=== PATIENT | female | born 1970 | race Caucasian/White ===

== ENCOUNTER 2018-04-11 15:59 | Emergency (ER) | payer OTHER ==
[~2018-04-11] VITALS: Ht 172.7 cm; Wt 85.0 kg
[~2018-04-11 15:59] MED LIST: DEPO150I IM; LEVO125T4 PO; PERC5TAB12 PO; POTA10TA8 PO; VENTAER INH
[2018-04-11 16:10] VITALS: BP 162/102; PULSE 120; RESP 16; TEMP 99; O2SAT 96
[2018-04-11 18:17] VITALS: BP 132/84; PULSE 89; RESP 15; TEMP 98; O2SAT 99
[2018-04-11] MEDS ORDERED: SODIUM CHLOR 0.9% 1000 ML INJ 1,000 ML IV SCH (18:31)
--- NOTE | 2018-04-11 18:38 | PD ---
HPI Chief Complaint: GI Complaint Time Seen by Provider: 18:07 Travel History International Travel<30 days: No Contact w/Intl Traveler<30days: No Traveled to known affect area: No History of Present Illness HPI 48-year-old female with a history of Crohn's disease and asthma presents emergency department for evaluation of abdominal pain that started yesterday. Says she went to her primary care physician office today where he ordered an x- ray. There is a concern for small bowel obstruction on x-ray so she was advised to come to the emergency department for further evaluation. Patient says that the pain is located in the middle of her abdomen described as pressure and tightening. Says the pain is worse with laying down and standing up. Says she has been able to eat normally however. She has associated nausea without vomiting. Says she has had 3 bowel movements a day but are dark in color and abnormal for her. She denies diarrhea. Says she has a history of hemorrhoids and has occasional bleeding but denies bleeding today. Says she has chronic abdominal pain however, this is different than her usual abdominal pain. She has a history of an ex lap for an ovarian cyst, appendectomy, and fatty tissue removal as part of her surgical history. She denies chest pain or shortness of breath. Her last colonoscopy was in October and she has followed [facility] for her condition. [facility] Past Medical History Arthritis: No Asthma: Yes Blood Disorders: No Cancer: No Cardiovascular Problems: No Chemotherapy: No COPD: No Cerebrovascular Accident: No Diabetes: No Diminished Hearing: No Endocrine: Yes Gastrointestinal Disorders: Yes GERD: No Glaucoma: No Genitourinary: No Headaches: No Hepatitis: No Hiatal Hernia: No Immune Disorder: No Musculoskeletal: Yes Neurologic: Yes (ARM AN LEG TINGLING STARTED ABOUT 1 MONTH AGO) Psychiatric: No Reproductive: No Respiratory: Yes Immunizations Current: Yes Migraines: No Radiation Therapy: No Seizures: No Sleep Apnea: No Thyroid Disease: Yes (hypo) Ulcer: No Tetanus Vaccination: > 5 Years Influenza Vaccination: Yes ?: Not : 5 Para: 2 Miscarriage: 1 : 2 Past Surgical History Abdominal Surgery: Yes (APPENDECTOMY) AICD: No Appendectomy: Yes Arteriovenous Shunt: No Cardiac Surgery: No Cholecystectomy: No Ear Surgery: No Endocrine Surgery: No Eye Surgery: No Genitourinary Surgery: No Gynecologic Surgery: No Insulin Pump: No Joint Replacement: No Neurologic Surgery: No Oral Surgery: No Pacemaker: No Thoracic Surgery: No Tonsillectomy: Yes Other Surgery: Yes (cyst removed from ovary) Social History Alcohol Use: No Tobacco Use: No Substance Use: No Allergies-Medications (Allergen,Severity, Reaction): Coded Allergies: Sulfa (Sulfonamide Antibiotics) (Verified Allergy, Severe, hives, 04/11/18) latex (Verified Allergy, Severe, Rash, 04/11/18) pneumococcal vaccine (Verified Allergy, Severe, Rash, 04/11/18) severe rash @ injection site acetaminophen (Verified Allergy, Intermediate, Rash, 04/11/18) rash on legs hydrocodone (Verified Allergy, Intermediate, Rash, 04/11/18) rash on legs prochlorperazine (Verified Adverse Reaction, Severe, Nausea/Vomiting, 04/11) Reported Meds & Prescriptions Reported Meds & Active Scripts Active Dicyclomine (Dicyclomine HCl) 20 Mg Tab 20 Mg PO TID 7 Days Reglan (Metoclopramide HCl) 5 Mg Tab 5 Mg PO QID 7 Days Reported Levothyroxine (Levothyroxine Sodium) 125 Mcg Tab 150 Mcg PO DAILY Depo-Provera Inj (Medroxyprogesterone Inj) 150 Mg/Ml Inj 150 Mg IM Q90D Ventolin Hfa 18 GM Inh (Albuterol Sulfate) 90 Mcg/Act Aer 1 Puff INH Q4H PRN Review of Systems Except as stated in HPI: all other systems reviewed are Neg Physical Exam Narrative GENERAL: Well-developed, well-nourished no apparent distress SKIN: Focused skin assessment warm/dry. HEAD: Atraumatic. Normocephalic. EYES: Pupils equal and round. No scleral icterus. No injection or drainage. ENT: No nasal bleeding or discharge. Mucous membranes pink and moist. NECK: Trachea midline. No JVD. No lymphadenopathy CARDIOVASCULAR: Regular rate and rhythm. No murmur appreciated. RESPIRATORY: No accessory muscle use. Clear to auscultation. Breath sounds equal bilaterally. GASTROINTESTINAL: Abdomen soft, voluntary guarding, tenderness to palpation of the right upper quadrant and right abdominal region without rebound tenderness. No organomegaly. Normoactive bowel sounds. MUSCULOSKELETAL: No obvious deformities. No clubbing. No cyanosis. No edema. Homans sign negative bilaterally NEUROLOGICAL: Awake and alert. No obvious cranial nerve deficits. Motor grossly within normal limits. Normal speech. PSYCHIATRIC: Appropriate mood and affect; insight and judgment normal. Data Data Last Documented VS Vital Signs Date Time Temp Pulse Resp B/P (MAP) Pulse Ox O2 Delivery O2 Flow Rate FiO2 04/12/18 00:16 04/11/18 19:14 18 99 Room Air 04/11/18 19:13 85 04/11/18 18:17 98.0 Orders Orders Complete Blood Count With Diff (04/11/18 18:31) Comprehensive Metabolic Panel (04/11/18 18:31) Lipase (04/11/18 18:31) Prothrombin Time / Inr (Pt) (04/11/18:) Act Partial Throm Time (Ptt) (04/11/18:) Urinalysis - C+S If Indicated (04/11/18 18:31) Iv Access Insert/Monitor (04/11/18 18:31) Ecg Monitoring (04/11/18 18:) Oximetry (04/11/18 18:31) NPO (04/11/18 18:31) Sodium Chlor 0.9% 1000 Ml Inj (Ns 1000 M (04/11/18 18:31) Ketorolac Inj (Toradol Inj) (04/11/18 18:45) Ed Urine Pregnancytest Poc (04/11/18 18:31) Ng Gastric Tube Insert/Monitor (04/11/18 18:37) Hydromorphone Pf Inj (Dilaudid Pf Inj) (04/11/18 18:45) Ondansetron Odt (Zofran Odt) (04/11/18 19:15) Ct Abd/Pel W Iv Contrast(Rout) (04/11/18 19:26) Oral Contrast - Adult (04/11/18 19:33) Diatrizoate Liq ( Gastroview Liq) (04/11/18 20:01) Iohexol 350 Inj (Omnipaque 350 Inj) (04/11/18 21:44) Hydromorphone Pf Inj (Dilaudid Pf Inj) (04/11/18 22:00) Discontinue Ng Tube (04/11/18 22:47) Dicyclomine (Bentyl) (04/11/18 23:00) Metoclopramide Inj (Reglan Inj) (04/11/18 23:00) Labs Laboratory Tests Test 04/11/18 18:35 04/11/18 21:27 White Blood Count 11.6 TH/MM3 Red Blood Count 4.61 MIL/MM3 Hemoglobin 13.3 GM/DL Hematocrit 39.9 % Mean Corpuscular Volume 86.5 FL Mean Corpuscular Hemoglobin 28.8 PG Mean Corpuscular Hemoglobin Concent 33.3 % Red Cell Distribution Width 15.9 % Platelet Count 269 TH/MM3 Mean Platelet Volume 9.0 FL Neutrophils (%) (Auto) 54.0 % Lymphocytes (%) (Auto) 35.7 % Monocytes (%) (Auto) 7.7 % Eosinophils (%) (Auto) 1.9 % Basophils (%) (Auto) 0.7 % Neutrophils # (Auto) 6.2 TH/MM3 Lymphocytes # (Auto) 4.1 TH/MM3 Monocytes # (Auto) 0.9 TH/MM3 Eosinophils # (Auto) 0.2 TH/MM3 Basophils # (Auto) 0.1 TH/MM3 CBC Comment DIFF FINAL Differential Comment Prothrombin Time 10.0 SEC Prothromb Time International Ratio 1.0 RATIO Activated Partial Thromboplast Time 27.6 SEC Blood Urea Nitrogen 7 MG/DL Creatinine 0.94 MG/DL Random Glucose 81 MG/DL Total Protein 7.3 GM/DL Albumin 4.1 GM/DL Calcium Level 8.5 MG/DL Alkaline Phosphatase 86 U/L Aspartate Amino Transf (AST/SGOT) 16 U/L Alanine Aminotransferase (ALT/SGPT) 24 U/L Total Bilirubin 0.4 MG/DL Sodium Level 142 MEQ/L Potassium Level 3.4 MEQ/L Chloride Level 109 MEQ/L Carbon Dioxide Level 22.2 MEQ/L Anion Gap 11 MEQ/L Estimat Glomerular Filtration Rate 63 ML/MIN Lipase 142 U/L Urine Color LIGHT-YELLOW Urine Turbidity CLEAR Urine pH 6.5 Urine Specific [place] 1.008 Urine Protein NEG mg/dL Urine Glucose (UA) NEG mg/dL Urine Ketones NEG mg/dL Urine Occult Blood NEG Urine Nitrite NEG Urine Bilirubin NEG Urine Urobilinogen LESS THAN 2.0 MG/DL Urine Leukocyte Esterase NEG Urine RBC 2 /hpf Urine WBC LESS THAN 1 /hpf Urine Squamous Epithelial Cells <1 /hpf Urine Bacteria RARE /hpf Microscopic Urinalysis Comment CULT NOT INDICATED MDM Medical Decision Making Medical Screen Exam Complete: Yes Emergency Medical Condition: Yes Differential Diagnosis Small bowel obstruction, Crohn's disease, gastritis Narrative Course 48y female presents to the ED c/o abdominal pain that has been present since yesterday. She went to her PCP today where they obtained an xray which was suggestive of a SBO. She decided to come to the ED for further evaluation. Her vital signs are stable. Patient has allergies to hydrocodone but has had Dilaudid. Dilaudid and Toradol administered for pain. Zofran for nausea. NG tube placed as patient is nauseous. Labs and imaging studies ordered. Review of the EMR and records patient brought in today: Patient was able to bring in couple of the imaging studies from the past year. She had a CT abdomen pelvis with and without contrast in October for diffuse abdominal pain and was unremarkable. Colonoscopy report from October 26, 2017 showed "circumferential diffuse abdominal mucosa was found in the left colon; the mucosa was erythematous and congested; multiple biopsies were performed." Hemorrhoids were noted on this report as well. EGD demonstrated gastritis. Last Impressions Abdomen/Pelvis CT 04/11/181925 Signed Impressions: CONCLUSION: Essentially unremarkable study. Her labs are reassuring. I discussed the findings of the CT and labs with the family. Advised that there is no small bowel obstruction and I do not see a reason to admit this patient today. Dicyclomine and Reglan administered prior to departure. She is strongly advised to follow-up with the primary care physician and terrazzo laborer for further evaluation. Advance diet as tolerated. Dicyclomine and Reglan for outpatient use. Diagnosis Primary Impression: Abdominal pain Qualified Codes: R10.84 - Generalized abdominal pain Admitting Information Admitting Physician Requests: Observation Referrals: Awning Erector Additional Instructions: You may eat as tolerated. Use medications as prescribed for your abdominal pain and nausea. Follow up with a terrazzo laborer. Return for worsening or persistent symptoms. Scripts Dicyclomine (Dicyclomine) 20 Mg Tab 20 MG PO TID for Bowel Management for 7 Days, #30 TAB 0 Refills Prov: Nury Deras DO 04/11/18 Metoclopramide (Reglan) 5 Mg Tab 5 MG PO QID for Pain Management for 7 Days, #28 TAB 0 Refills Prov: Nury Deras DO 04/11/18 Disposition: 01 DISCHARGE HOME Condition: Stable Meme Fay Apr 11, 2018 18:38
[2018-04-11] MEDS ORDERED: KETOROLAC TROMETHAMINE 30 MG/ML (IVP) VIAL IVP ONE (18:45)
[2018-04-11] MEDS ORDERED: HYDROmorphone HCL PF 0.5 MG/0.5 ML SYRINGE IV PUSH ONE ×2 (18:45→22:00)
[2018-04-11] MEDS ORDERED: ONDANSETRON HCL 4 MG/2 ML VIAL IVP ONE (18:45)
[2018-04-11 19:13] VITALS: BP 147/87; PULSE 85; RESP 18; O2SAT 99
[2018-04-11 19:14] VITALS: RESP 18; O2SAT 99
[2018-04-11] MEDS ORDERED: ONDANSETRON ODT 4 MG TAB PO ONE (19:15)
[2018-04-11 19:20] LABS: AUTOMATED NEUTROPHIL # 6.2 TH/MM3 (1.8-7.7); BASOPHIL # 0.1 TH/MM3 (0-0.2); BASOPHIL % 0.7 % (0.0-2.0); EOSINOPHIL # 0.2 TH/MM3 (0-0.4); EOSINOPHIL % 1.9 % (0.0-4.0); HEMATOCRIT 39.9 % (35.0-46.0); HEMOGLOBIN 13.3 GM/DL (11.6-15.3); LYMPH % 35.7 % (9.0-44.0); LYMPHOCYTE # 4.1 TH/MM3 (1.0-4.8); MEAN CELL VOLUME 86.5 FL (80.0-100.0); MEAN CORPUSCULAR HEMOGLOBIN 28.8 PG (27.0-34.0); MEAN CORPUSCULAR HGB CONC 33.3 % (32.0-36.0); MONO % 7.7 % (0.0-8.0); MONOCYTE # 0.9 TH/MM3 (0-0.9); PLATELET COUNT 269 TH/MM3 (150-450); RED BLOOD COUNT 4.61 MIL/MM3 (4.00-5.30); RED CELL DISTRIBUTION WIDTH 15.9 % (11.6-17.2); WHITE BLOOD COUNT 11.6 TH/MM3 (4.0-11.0)
[2018-04-11 19:30] LABS: ALBUMIN 4.1 GM/DL (3.4-5.0); ALT (GPT) 24 U/L (10-53); AST (GOT) 16 U/L (15-37); BICARBONATE 22.2 MEQ/L (21.0-32.0); BLOOD UREA NITROGEN 7 MG/DL (7-18); CALCIUM 8.5 MG/DL (8.5-10.1); CHLORIDE 109 MEQ/L (98-107); CREATININE 0.94 MG/DL (0.50-1.00); GLOMERULAR FILTRATION RATE 63 ML/MIN (>89); GLUCOSE,RANDOM 81 MG/DL (74-106); SODIUM (NA) 142 MEQ/L (136-145)
[2018-04-11 19:32] LABS: ALKALINE PHOSPHATASE 86 U/L (45-117); TOTAL BILIRUBIN ADULT 0.4 MG/DL (0.2-1.0); TOTAL PROTEIN 7.3 GM/DL (6.4-8.2)
--- NOTE | 2018-04-11 19:35 | PD ---
Physical Exam Date Seen by Provider: Apr 11, 2018 Data Data Last Documented VS Vital Signs Date Time Temp Pulse Resp B/P (MAP) Pulse Ox O2 Delivery O2 Flow Rate FiO2 04/11/18 19:14 18 99 Room Air 04/11/18 19:13 85 04/11/18 18:17 98.0 Orders Orders Complete Blood Count With Diff (04/11/18 18:31) Comprehensive Metabolic Panel (04/11/18 18:31) Lipase (04/11/18 18:31) Prothrombin Time / Inr (Pt) (04/11/18 18:31) Act Partial Throm Time (Ptt) (04/11/18 18:31) Urinalysis - C+S If Indicated (04/11/18 18:31) Iv Access Insert/Monitor (04/11/18 18:31) Ecg Monitoring (04/11/18 18:31) Oximetry (04/11/18 18:31) NPO (04/11/18 18:31) Sodium Chlor 0.9% 1000 Ml Inj (Ns 1000 M (04/11/18 18:31) Ketorolac Inj (Toradol Inj) (04/11/18 18:45) Ed Urine Pregnancytest Poc (04/11/18 18:31) Ng Gastric Tube Insert/Monitor (04/11/18 18:37) Hydromorphone Pf Inj (Dilaudid Pf Inj) (04/11/18 18:45) Ondansetron Odt (Zofran Odt) (04/11/18 19:15) Ct Abd/Pel W Iv Contrast(Rout) (04/11/18 19:26) Oral Contrast - Adult (04/11/18 19:33) Diatrizoate Liq ( Gastroview Liq) (04/11/18 20:01) Iohexol 350 Inj (Omnipaque 350 Inj) (04/11/18 21:44) Hydromorphone Pf Inj (Dilaudid Pf Inj) (04/11/18 22:00) Discontinue Ng Tube (04/11/18 22:47) Dicyclomine (Bentyl) (04/11/18 23:00) Metoclopramide Inj (Reglan Inj) (04/11/18 23:00) Labs Laboratory Tests Test 04/11/18 18:35 04/11/18 21:27 White Blood Count 11.6 TH/MM3 Red Blood Count 4.61 MIL/MM3 Hemoglobin 13.3 GM/DL Hematocrit 39.9 % Mean Corpuscular Volume 86.5 FL Mean Corpuscular Hemoglobin 28.8 PG Mean Corpuscular Hemoglobin Concent 33.3 % Red Cell Distribution Width 15.9 % Platelet Count 269 TH/MM3 Mean Platelet Volume 9.0 FL Neutrophils (%) (Auto) 54.0 % Lymphocytes (%) (Auto) 35.7 % Monocytes (%) (Auto) 7.7 % Eosinophils (%) (Auto) 1.9 % Basophils (%) (Auto) 0.7 % Neutrophils # (Auto) 6.2 TH/MM3 Lymphocytes # (Auto) 4.1 TH/MM3 Monocytes # (Auto) 0.9 TH/MM3 Eosinophils # (Auto) 0.2 TH/MM3 Basophils # (Auto) 0.1 TH/MM3 CBC Comment DIFF FINAL Differential Comment Prothrombin Time 10.0 SEC Prothromb Time International Ratio 1.0 RATIO Activated Partial Thromboplast Time 27.6 SEC Blood Urea Nitrogen 7 MG/DL Creatinine 0.94 MG/DL Random Glucose 81 MG/DL Total Protein 7.3 GM/DL Albumin 4.1 GM/DL Calcium Level 8.5 MG/DL Alkaline Phosphatase 86 U/L Aspartate Amino Transf (AST/SGOT) 16 U/L Alanine Aminotransferase (ALT/SGPT) 24 U/L Total Bilirubin 0.4 MG/DL Sodium Level 142 MEQ/L Potassium Level 3.4 MEQ/L Chloride Level 109 MEQ/L Carbon Dioxide Level 22.2 MEQ/L Anion Gap 11 MEQ/L Estimat Glomerular Filtration Rate 63 ML/MIN Lipase 142 U/L Urine Color LIGHT-YELLOW Urine Turbidity CLEAR Urine pH 6.5 Urine Specific [place] 1.008 Urine Protein NEG mg/dL Urine Glucose (UA) NEG mg/dL Urine Ketones NEG mg/dL Urine Occult Blood NEG Urine Nitrite NEG Urine Bilirubin NEG Urine Urobilinogen LESS THAN 2.0 MG/DL Urine Leukocyte Esterase NEG Urine RBC 2 /hpf Urine WBC LESS THAN 1 /hpf Urine Squamous Epithelial Cells <1 /hpf Urine Bacteria RARE /hpf Microscopic Urinalysis Comment CULT NOT INDICATED MDM Medical Record Reviewed: Yes Supervised Visit with LELO: Yes Narrative Course I, Dr. Deras, have reviewed the advance practice practitioner's documentation and am in agreement, met with the patient face to face, made the diagnosis, and the medical decision making was done by me. *My assessment and Findings: Patient is a 48-year-old female with history of Crohn's disease, history of appendectomy and ex lap, presents the emergency room with complaints of abdominal pain. Patient reports that her abdominal pain began last night, reports that today, abdominal pain is more severe. Patient did see her PCP today and had an x-ray of her abdomen which showed concerning findings for small bowel obstruction, patient here for evaluation of possible small bowel obstruction. Patient currently pending laboratory studies as well as CT the abdomen pelvis with IV and oral contrast to evaluate for small bowel obstruction. CBC & BMP Diagram 04/11/18 18:35 Total Protein 7.3, Albumin 4.1, Calcium Level 8.5, Alkaline Phosphatase 86, Aspartate Amino Transf (AST/SGOT) 16, Alanine Aminotransferase (ALT/SGPT) 24, Total Bilirubin 0.4 Last Impressions Abdomen/Pelvis CT 04/11/181925 Signed Impressions: CONCLUSION: Essentially unremarkable study. Patient feeling better at this time. Patient will be discharged to home with strict instructions to follow up with pcp in 12-24 hours. Signs and symptoms of an acute abdomen was reviewed with patient. She will return to ER as needed Diagnosis Primary Impression: Abdominal pain Additional Impression: Hypokalemia Patient Instructions: General Instructions, Narcotic given in the ED Additional Instruction: Please provide patient with a copy of their lab work and studies at discharge* * Please follow up with your primary care doctor in 12-24 hours Return to the ER if symptoms worsen or progress Return to the ER as needed Scripts Dicyclomine (Dicyclomine) 20 Mg Tab 20 MG PO TID for Bowel Management for 7 Days, #30 TAB 0 Refills Prov: Nury Deras DO 04/11/18 Metoclopramide (Reglan) 5 Mg Tab 5 MG PO QID for Pain Management for 7 Days, #28 TAB 0 Refills Prov: Nury Deras DO 04/11/18 Condition: Stable Nury Deras DO Apr 11, 2018 19:35
[2018-04-11] MEDS ORDERED: DIATRIZOATE MEGLUM/DIATRIZOATE SOD 9 ML CUP ONE (20:01)
[2018-04-11] MEDS ORDERED: IOHEXOL 350 MG/ML 10 ML VIAL (for RAD DIAG) IVCONTRAST ONE (21:44)
--- NOTE | 2018-04-11 22:05 | RADRPT ---
EXAM DATE: 04/11/2018 9:45 PM EDT AGE/SEX: 48 years / Female INDICATIONS: Epigastric abdomen pain. Sent from outside doctor for abnormal radiographs showing part ial small bowel obstruction. CLINICAL DATA: This is the patient's initial encounter. Patient reports that signs and symptoms have been present for 1 day and indicates a pain score of 9/10. MEDICAL/SURGICAL HISTORY: Osteoarthritis. Appendectomy. ORAL CONTRAST: Prescribed oral contrast ingested. RADIATION DOSE: 9.97 CTDI (mGy) COMPARISON: POI, CT ABDOMEN AND PELVIS W AND W/O CONTRAST, 10/22/2017. . TECHNIQUE: Multiple contiguous axial images were obtained through the abdomen and pelvis following b olus infusion of 100 ml Omnipaque 350 (iohexol) nonionic water-soluble contrast as a single exam do se. Prescribed oral contrast ingested. Using automated exposure control and adjustment of the mA and /or kV according to patient size, the radiation dose was kept as low as reasonably achievable to obta in optimal diagnostic quality images. FINDINGS: Abdomen CT: The liver, spleen, pancreas, kidneys, adrenals are unremarkable. There is no evidence for any appreci able pathological adenopathy, free fluid, or bowel obstruction. Pelvic CT: There is no evidence for mass, abscess formation, or any significant adenopathy within the pelvis. CONCLUSION: Essentially unremarkable study. Electronically signed by: Neo Triana MD 04/11/2018 10:03 PM EDT
[2018-04-11 22:15] LABS: BACTERIA, URINE RARE /hpf; BILIRUBIN, URINE NEG (NEG); BLOOD, URINE NEG (NEG); GLUCOSE,URINE NEG (NEG); KETONE, URINE NEG (NEG); NITRITE,URINE NEG (NEG); PH, URINE 6.5 (5.0-8.5); SQUAMOUS EPITHELIAL CELL URINE <1 /hpf (0-5); URINE COLOR LIGHT-YELLOW (YELLW/STRAW); URINE LEUKOCYTE ESTERASE NEG (NEG)
[2018-04-11] MEDS ORDERED: DICY20TA10 PO (22:59)
[2018-04-11] MEDS ORDERED: REGL5TAB PO (22:59)
[2018-04-11] MEDS ORDERED: DICYCLOMINE HCL 20 MG TAB PO ONE (23:00)
[2018-04-11] MEDS ORDERED: METOCLOPRAMIDE HCL 10 MG/2 ML VIAL IV PUSH ONE (23:00)
== END 2018-04-12 00:17 | disposition home or self-care (01) ==
LOC: NEPC 15:59
DX: R10.84 Generalized abdominal pain (principal); E87.6 Hypokalemia; E03.9 Hypothyroidism, unspecified
CPT/HCPCS: 43753; 74177; 80053; 81001; 83690; 84703; 85025; 85610; 85730; 96374; 96375; 96376; 99284; J1170; J1885; J2765; J7030; Q9963; Q9967